=== PATIENT | female | born 1975 | race Asian ===

== ENCOUNTER 2022-04-12 07:56 | Outpatient (CLI) | payer OTHER | END 2022-04-12 07:57 | disposition home or self-care (01) | LOC: ULT 07:56 | PROVIDERS: ATTEND Nurse Practitioner Family | DX: R23.4 Changes in skin texture (principal) | CPT/HCPCS: 76705 ==

== ENCOUNTER 2022-12-20 07:22 | Outpatient (CLI) | payer OTHER ==
[2022-12-20] MEDS ORDERED: Magnevist 469MG/ML 20 ML VIAL ONE (09:56)
== END 2022-12-20 07:23 | disposition home or self-care (01) ==
LOC: BICMRI 07:22
PROVIDERS: ATTEND Nurse Practitioner Family
DX: R22.32 Localized swelling, mass and lump, left upper limb (principal)
CPT/HCPCS: 82565; A9579